=== PATIENT | female | born 1985 | race Caucasian/White ===

== ENCOUNTER 2016-10-29 21:35 | Emergency (ER) | payer OTHER ==
[~2016-10-29] VITALS: Ht 165.1 cm; Wt 68.5 kg
[~2016-10-29 21:35] MED LIST: DICL50TA3 PO; HYDR-3133 PO; LORA-392 PO; XANA2TAB PO
[2016-10-29 21:46] VITALS: BP 161/65; PULSE 82; RESP 18; TEMP 99.8; O2SAT 100
[2016-10-30] MEDS ORDERED: CLINDAMYCIN INJ 900 MG in SODIUM CHLORIDE 0.9% INJ 100 ML IV ONE (04:15)
[2016-10-30] MEDS ORDERED: KETOROLAC TROMETHAMINE 30 MG/ML (IVP) VIAL IV PUSH ONE (04:15)
[2016-10-30 05:08] LABS: POTASSIUM 3.7 MEQ/L (3.5-5.1)
[2016-10-30 05:11] LABS: BICARBONATE 26.4 MEQ/L (21.0-32.0)
[2016-10-30 05:15] LABS: AUTOMATED NEUTROPHIL # 2.9 TH/MM3 (1.8-7.7); BASOPHIL # 0.1 TH/MM3 (0-0.2); BASOPHIL % 1.8 % (0.0-2.0); EOSINOPHIL # 0.1 TH/MM3 (0-0.4); EOSINOPHIL % 1.8 % (0.0-4.0); HEMATOCRIT 33.4 % (35.0-46.0); HEMO FLAGS DIFF FINAL; LYMPH % 28.2 % (9.0-44.0); LYMPHOCYTE # 1.4 TH/MM3 (1.0-4.8); MEAN CELL VOLUME 89.4 FL (80.0-100.0); MEAN CORPUSCULAR HEMOGLOBIN 29.6 PG (27.0-34.0); MEAN CORPUSCULAR HGB CONC 33.1 % (32.0-36.0); MONO % 12.7 % (0.0-8.0); NEUT % 55.5 % (16.0-70.0); PLATELET COUNT 290 TH/MM3 (150-450); RED BLOOD COUNT 3.73 MIL/MM3 (4.00-5.30); WHITE BLOOD COUNT 5.1 TH/MM3 (4.0-11.0)
[2016-10-30] MEDS ORDERED: IOHEXOL 350 MG/ML 10 ML VIAL (for RAD DIAG) IVCONTRAST ONE (05:50)
--- NOTE | 2016-10-30 06:20 | RADRPT ---
EXAM DATE/TIME: 10/30/2016 15:50 [place] COMPARISON: No previous studies available for comparison. INDICATIONS : Right periorbital swelling. IV CONTRAST: 68 cc Omnipaque 350 (iohexol) IV RADIATION DOSE: 29.92 CTDIvol (mGy) MEDICAL HISTORY : None SURGICAL HISTORY : None. ENCOUNTER: Initial ACUITY: 2 days PAIN SCALE: 5/10 LOCATION: facial TECHNIQUE: Volumetric scanning of the facial bones was performed. Using automated exposure control and adjustme nt of the mA and/or kV according to patient size, radiation dose was kept as low as reasonably achiev able to obtain optimal diagnostic quality images. DICOM format image data is available electronicall y for review and comparison. FINDINGS: There is pre-septal soft tissue swelling in the right periorbital region with a suspected small cresc entic area of fluid in the subcutaneous tissues. No post septal inflammatory change identified. Both globes intact and no associated bony abnormalities. Sinuses are clear. CONCLUSION: 1. Pre-septal periorbital cellulitis with possible small crescentic-shaped area of subcutaneous fluid also present. Kb Dixon MD on October 30, 2016 at 6:16 Board Certified Radiologist. This report was verified electronically.
[2016-10-30 06:35] VITALS: BP 108/63; PULSE 71; RESP 16; TEMP 98.6; O2SAT 98
--- NOTE | 2016-10-30 09:48 | PD ---
HPI Chief Complaint: Skin Problem Time Seen by Provider: 04:12 Travel History International Travel<30 days: No Contact w/Intl Traveler<30days: No Traveled to known affect area: No History of Present Illness HPI 31 year-old female presents to the emergency department for complaint of swelling to the right eyelid and multiple pustular lesions over the upper extremities entry lesser extent the lower extremities. Patient reports that she has had fever at home up to 10 2F. Patient states she's now developed laryngitis. Patient states she's had myalgias and arthralgias. Patient states she was plucking her right eyebrow on evening and awakened on Saturday with swelling of the right eyelid. Patient states she had drainage from the right eyelid. Patient had left over antibiotic 8 doses and took this medication with some improvement of symptoms. Patient continues to have swelling of the right eyelid however does not think it is improving as well as the other sites. Patient is not diabetic. Patient is not on steroids for immunosuppressive therapy. Patient states that her last Tylenol was around 8 PM last evening. Patient denies . [facility] Past Medical History Narrative Medical Anxiety; nursing notes reviewed Anxiety: Yes Migraines: Yes Seizures: Yes (R/T COMING OFF RX MEDICATION) Tetanus Vaccination: Unknown Influenza Vaccination: No ?: Unknown LMP: 10/19/16 "SPOTTING" 09/26/16 "LAST FULL PERIOD" : 3 Para: 1 Miscarriage: 1 : 1 Past Surgical History Other Surgery: Yes (COSMETIC ) Social History Alcohol Use: Yes (RARELY) Tobacco Use: No Substance Use: No Allergies-Medications (Allergen,Severity, Reaction): Coded Allergies: No Known Allergies (Unverified , 10/30/16) Reported Meds & Prescriptions Reported Meds & Active Scripts Active No Active Prescriptions or Reported Medications Review of Systems Except as stated in HPI: all other systems reviewed are Neg Physical Exam Narrative GENERAL: Well-developed well-nourished female in no acute distress no respiratory distress; mild hoarseness no stridor SKIN: Warm and dry. Multiple subcentimeter pustules without vesicles no petechia no purpura to the upper extremities attention right eyelid with erythema and edema no. Orbital swelling or tenderness. HEAD: Normocephalic. EYES: No scleral icterus. No injection or drainage. ENT: Mucous membranes moist airway is patent tympanic membranes no redness no dullness or loss of landmarks. NECK: Supple, trachea midline. No JVD or lymphadenopathy. No nuchal rigidity no meningismus. CARDIOVASCULAR: Regular rate and rhythm without murmurs, gallops, or rubs. RESPIRATORY: Breath sounds equal bilaterally. No accessory muscle use. GASTROINTESTINAL: Abdomen soft, non-tender, nondistended. MUSCULOSKELETAL: No cyanosis, or edema. BACK: Nontender without obvious deformity. No CVA tenderness. Data Data Last Documented VS Vital Signs Date Time Temp Pulse Resp B/P (MAP) Pulse Ox O2 Delivery O2 Flow Rate FiO2 10/30/16 06:35 98.6 71 16 108/63 (78) 98 Room Air Orders Orders Basic Metabolic Panel (Bmp) (10/30/16 04:12) Complete Blood Count With Diff (10/30/16 04:12) Blood Culture (10/30/16 04:12) Iv Access Insert/Monitor (10/30/16 04:12) Clindamycin Inj (Cleocin Inj) (10/30/16 04:15) Ed Urine Pregnancytest Poc (10/30/16 04:12) Ketorolac Inj (Toradol Inj) (10/30/16 04:15) Ct Facial Bones W Iv Contrast (10/30/16 ) Iohexol 350 Inj (Omnipaque 350 Inj) (10/30/16 05:50) Labs Laboratory Tests Test 10/30/16 04:45 White Blood Count 5.1 TH/MM3 Red Blood Count 3.73 MIL/MM3 Hemoglobin 11.1 GM/DL Hematocrit 33.4 % Mean Corpuscular Volume 89.4 FL Mean Corpuscular Hemoglobin 29.6 PG Mean Corpuscular Hemoglobin Concent 33.1 % Red Cell Distribution Width 12.0 % Platelet Count 290 TH/MM3 Mean Platelet Volume 7.7 FL Neutrophils (%) (Auto) 55.5 % Lymphocytes (%) (Auto) 28.2 % Monocytes (%) (Auto) 12.7 % Eosinophils (%) (Auto) 1.8 % Basophils (%) (Auto) 1.8 % Neutrophils # (Auto) 2.9 TH/MM3 Lymphocytes # (Auto) 1.4 TH/MM3 Monocytes # (Auto) 0.6 TH/MM3 Eosinophils # (Auto) 0.1 TH/MM3 Basophils # (Auto) 0.1 TH/MM3 CBC Comment DIFF FINAL Differential Comment Blood Urea Nitrogen 5 MG/DL Creatinine 0.64 MG/DL Random Glucose 90 MG/DL Calcium Level 8.6 MG/DL Sodium Level 138 MEQ/L Potassium Level 3.7 MEQ/L Chloride Level 102 MEQ/L Carbon Dioxide Level 26.4 MEQ/L Anion Gap 10 MEQ/L Estimat Glomerular Filtration Rate 108 ML/MIN MDM Medical Decision Making Medical Screen Exam Complete: Yes Emergency Medical Condition: Yes Medical Record Reviewed: Yes Differential Diagnosis Preseptal cellulitis no findings for periorbital cellulitis upper eyelid abscess cellulitis impetiginous rash Narrative Course Specimens collected and sent for resulting patient given a dose of clindamycin and Toradol [address] facial bones performed and no evidence for abscess findings consistent with preseptal cellulitis care signed over to Dr Vallecillo Scripts No Active Prescriptions or Reported Meds Jessica Mandujano MD Oct 30, 2016 09:48
[2016-10-30] MEDS ORDERED: NORC5TAB PO (09:53)
[2016-10-30] MEDS ORDERED: HIBI4LIQ TOPICAL (09:53)
[2016-10-30] MEDS ORDERED: CLIN150 PO (09:53)
[2016-10-30] MEDS ORDERED: BACT800T5 PO (09:53)
--- NOTE | 2016-10-30 09:54 | PD ---
Physical Exam Date Seen by Provider: Oct 30, 2016 Time Seen by Provider: 09:49 Narrative The patient is a 31-year-old female who was initially evaluated by Dr. Mandujano. Please refer to the initial history, physical, diagnostic evaluation, and treatment modality plan. The patient was signed out with laboratory evaluation and CT pending. Data Data Last Documented VS Vital Signs Date Time Temp Pulse Resp B/P (MAP) Pulse Ox O2 Delivery O2 Flow Rate FiO2 10/30/16 06:35 98.6 71 16 108/63 (78) 98 Room Air Orders Orders Basic Metabolic Panel (Bmp) (10/30/16 04:12) Complete Blood Count With Diff (10/30/16 04:12) Blood Culture (10/30/16 04:12) Iv Access Insert/Monitor (10/30/16 04:12) Clindamycin Inj (Cleocin Inj) (10/30/16 04:15) Ed Urine Pregnancytest Poc (10/30/16 04:12) Ketorolac Inj (Toradol Inj) (10/30/16 04:15) Ct Facial Bones W Iv Contrast (10/30/16 ) Iohexol 350 Inj (Omnipaque 350 Inj) (10/30/16 05:50) Morphine Inj (Morphine Inj) (10/30/16 10:00) Ondansetron Inj (Zofran Inj) (10/30/16 10:00) Ns (Bolus) Inj (10/30/16 10:00) Labs Laboratory Tests Test 10/30/16 04:45 White Blood Count 5.1 TH/MM3 Red Blood Count 3.73 MIL/MM3 Hemoglobin 11.1 GM/DL Hematocrit 33.4 % Mean Corpuscular Volume 89.4 FL Mean Corpuscular Hemoglobin 29.6 PG Mean Corpuscular Hemoglobin Concent 33.1 % Red Cell Distribution Width 12.0 % Platelet Count 290 TH/MM3 Mean Platelet Volume 7.7 FL Neutrophils (%) (Auto) 55.5 % Lymphocytes (%) (Auto) 28.2 % Monocytes (%) (Auto) 12.7 % Eosinophils (%) (Auto) 1.8 % Basophils (%) (Auto) 1.8 % Neutrophils # (Auto) 2.9 TH/MM3 Lymphocytes # (Auto) 1.4 TH/MM3 Monocytes # (Auto) 0.6 TH/MM3 Eosinophils # (Auto) 0.1 TH/MM3 Basophils # (Auto) 0.1 TH/MM3 CBC Comment DIFF FINAL Differential Comment Blood Urea Nitrogen 5 MG/DL Creatinine 0.64 MG/DL Random Glucose 90 MG/DL Calcium Level 8.6 MG/DL Sodium Level 138 MEQ/L Potassium Level 3.7 MEQ/L Chloride Level 102 MEQ/L Carbon Dioxide Level 26.4 MEQ/L Anion Gap 10 MEQ/L Estimat Glomerular Filtration Rate 108 ML/MIN [facility] Medical Record Reviewed: Yes Supervised Visit with AVRIL: Yes Interpretation(s) Last Impressions Maxillofacial CT 10/30/16 0000 Signed Impressions: Service Date/Time: Sunday, October 30, 2016 15:50 - CONCLUSION: 1. Pre-septal periorbital cellulitis with possible small crescentic-shaped area of subcutaneous fluid also present. Kb Dixon MD Laboratory Tests Test 10/30/16 04:45 White Blood Count 5.1 TH/MM3 Red Blood Count 3.73 MIL/MM3 Hemoglobin 11.1 GM/DL Hematocrit 33.4 % Mean Corpuscular Volume 89.4 FL Mean Corpuscular Hemoglobin 29.6 PG Mean Corpuscular Hemoglobin Concent 33.1 % Red Cell Distribution Width 12.0 % Platelet Count 290 TH/MM3 Mean Platelet Volume 7.7 FL Neutrophils (%) (Auto) 55.5 % Lymphocytes (%) (Auto) 28.2 % Monocytes (%) (Auto) 12.7 % Eosinophils (%) (Auto) 1.8 % Basophils (%) (Auto) 1.8 % Neutrophils # (Auto) 2.9 TH/MM3 Lymphocytes # (Auto) 1.4 TH/MM3 Monocytes # (Auto) 0.6 TH/MM3 Eosinophils # (Auto) 0.1 TH/MM3 Basophils # (Auto) 0.1 TH/MM3 CBC Comment DIFF FINAL Differential Comment Blood Urea Nitrogen 5 MG/DL Creatinine 0.64 MG/DL Random Glucose 90 MG/DL Calcium Level 8.6 MG/DL Sodium Level 138 MEQ/L Potassium Level 3.7 MEQ/L Chloride Level 102 MEQ/L Carbon Dioxide Level 26.4 MEQ/L Anion Gap 10 MEQ/L Estimat Glomerular Filtration Rate 108 ML/MIN Differential Diagnosis Differential diagnosis includes preseptal cellulitis, post-septal cellulitis, abscess, infected wound, MRSA. Narrative Course The patient was initially evaluated by the previous physician. Please refer to the initial history, physical, diagnostic evaluation, and treatment modality plan. The patient was signed out with CT and laboratory evaluation pending. CT reveals preseptal cellulitis, questionable mesenteric fluid area, I evaluated the patient, she does have mild edema of the upper eyelid with a scab in place, but no fluctuance to indicate abscess. The patient received clindamycin and Toradol for pain, still had mild discomfort. 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 The patient was discharged home on clindamycin, Bactrim, and Hibiclens with pain medications. She is advised to follow-up with a primary physician. Return if symptoms worsen or progress. Diagnosis Primary Impression: Preseptal cellulitis of right upper eyelid Patient Instructions: General Instructions Additional Instruction: Medications as directed. Cool compresses to the right eye. Follow-up with her primary physician. Return if symptoms worsen or progress. Med/Other Pt SpecificInfo: Prescription(s) given Scripts Hydrocodone-Acetaminophen ([place]ass) 5-325 mg Tab 1 TAB PO Q6H Y for PAIN, #15 TAB 0 Refills Prov: Shaheed Vallecillo MD 10/30/16 Chlorhexidine Gluconate Topical (Hibiclens Topical) 4% Liq 1 APPLIC TOPICAL ONCE for Skin Cleanser, #118 ML 1 Refill Prov: Shaheed Vallecillo MD 10/30/16 Sulfamethoxazole-Trimethoprim (Bactrim DS) 800-160 Mg Tab 1 TAB PO BID for Infection, #20 TAB 0 Refills Prov: Shaheed Vallecillo MD 10/30/16 Clindamycin (Cleocin) 150 Mg Cap 150 MG PO Q6H for Infection for 10 Days, CAP 0 Refills Prov: Shaheed Vallecillo MD 10/30/16 Disposition: 01 DISCHARGE HOME Condition: Stable Shaheed Vallecillo MD Oct 30, 2016 09:54
[2016-10-30] MEDS ORDERED: MORPHINE SULFATE 4 MG/ML INJ IV PUSH ONE (10:00)
[2016-10-30] MEDS ORDERED: SODIUM CHLORID 0.9% 500 ML INJ 500 ML IV ONE (10:00)
[2016-10-30] MEDS ORDERED: ONDANSETRON HCL 4 MG/2 ML VIAL IV PUSH ONE (10:00)
[2016-10-30 10:10] VITALS: BP 100/59; PULSE 69; RESP 14; O2SAT 98
== END 2016-10-30 11:00 | disposition home or self-care (01) ==
LOC: PHED 21:35
DX: H00.031 Abscess of right upper eyelid (principal)
CPT/HCPCS: 70487; 80048; 84703; 85025; 87040; 96361; 96365; 96375; 99285; J1885; J2270; J2405; J7040; Q9967

== ENCOUNTER 2017-07-18 08:33 | Inpatient (IN) | payer SELFPAY ==
[~2017-07-18] VITALS: Ht 165.1 cm; Wt 64.0 kg
[~2017-07-18 08:33] MED LIST changes: +BACT800T5 PO; +CLIN150 PO; -DICL50TA3 PO; +HIBI4LIQ TOPICAL; -HYDR-3133 PO; -LORA-392 PO; +NORC5TAB PO; -XANA2TAB PO
[2017-07-18 08:39] VITALS: BP 116/59; TEMP 98.2; O2SAT 99
--- NOTE | 2017-07-18 09:29 | PD ---
HPI Chief Complaint: Syncope/Near-Syncope Time Seen by Provider: 09:03 Travel History International Travel<30 days: No Contact w/Intl Traveler<30days: No Traveled to known affect area: No History of Present Illness HPI The patient was seen and examined in the presence of the nurse. Patient complains of abdominal pain and diarrhea for 1 week. She had a syncopal episode today and struck her forehead on the ground. She woke up on the ground. Complains of headache. No neck pain. Symptoms are moderately severe. She also has left knee pain from the fall and a bruise there. Patient's fianc called paramedics when she fell. Patient has severe anxiety and panic problems. She is visibly panicky and in a position and shaking. Very challenging to evaluate. No alleviating factors. Symptoms exacerbated by her anxiety. She does have history of benzodiazepine withdrawal seizure in the past but has not been on benzodiazepines per years per her report. She is a heavy alcohol drinker. Denies drug use PFSH Past Medical History Anxiety: Yes Migraines: Yes Seizures: Yes (R/T COMING OFF RX MEDICATION) Tetanus Vaccination: Unknown Influenza Vaccination: No ?: Unknown LMP: 01/2017 : 3 Para: 1 Miscarriage: 1 : 1 Past Surgical History Oral Surgery: Yes (wisdom teeth) Other Surgery: Yes (COSMETIC ) Social History Alcohol Use: Yes (daily "couple shots and beer") Tobacco Use: No Substance Use: No Allergies-Medications (Allergen,Severity, Reaction): Coded Allergies: No Known Allergies (Unverified Adverse Reaction, Unknown, 07/18/17) Reported Meds & Prescriptions Reported Meds & Active Scripts Active No Active Prescriptions or Reported Medications Review of Systems General / Constitutional: No: Fever Eyes: No: Visual changes HENT: Positive: Headaches Cardiovascular: Positive: Syncope, No: Chest Pain or Discomfort Respiratory: No: Shortness of Breath Gastrointestinal: No: Abdominal Pain Genitourinary: No: Dysuria Musculoskeletal: Positive: Weakness, Pain Skin: No Rash Neurologic: Positive: Weakness, Headache Psychiatric: Positive: Anxiety, Substance Abuse, No: Depression Endocrine: No: Polydipsia Hematologic/Lymphatic: No: Easy Bruising Physical Exam Narrative GENERAL: Well-nourished, well-developed patient with severe anxiety. SKIN: Focused skin assessment reveals no rash and nodules. Skin is Warm and dry. HEAD: Has an abrasion to the mid mid forehead with tenderness. Normocephalic. There is an abrasion to her chin without any tenderness. EYES: Pupils equal and round. No scleral icterus. No injection or drainage. ENT: No nasal bleeding or discharge. Mucous membranes pink and moist. No tongue injury. No loose dentition. NECK: Trachea midline. No JVD. No midline tenderness. No bruising or swelling of the neck. CARDIOVASCULAR: Regular rate and rhythm. No murmur appreciated. RESPIRATORY: No accessory muscle use. Clear to auscultation. Breath sounds equal bilaterally. GASTROINTESTINAL: Abdomen soft, periumbilical tenderness without rebound or guarding, nondistended. Hepatic and splenic margins not palpable. MUSCULOSKELETAL: No obvious deformities. No clubbing. No cyanosis. No edema. Has some bruising and tenderness to the left patella NEUROLOGICAL: Awake and alert. No obvious cranial nerve deficits. Motor grossly within normal limits. Normal speech. PSYCHIATRIC: Very anxious mood and affect; insight and judgment poor . Data Data Last Documented VS Vital Signs Date Time Temp Pulse Resp B/P (MAP) Pulse Ox O2 Delivery O2 Flow Rate FiO2 07/18/17 08:39 98.2 93 18 116/59 (78) 99 Orders Orders Electrocardiogram (07/18/17 08:52) Complete Blood Count With Diff (07/18/17 08:52) Comprehensive Metabolic Panel (07/18/17 08:52) Iv Access Insert/Monitor (07/18/17 08:52) Sodium Chlor 0.9% 1000 Ml Inj (Ns 1000 M (07/18/17 09:30) Alcohol (Ethanol) (07/18/17 09:19) Ct Brain W/O Iv Contrast(Rout) (07/18/17 ) Drug Screen, Random Urine (07/18/17 09:19) Ed Urine Pregnancytest Poc (07/18/17 09:19) Ct Abd/Pel W Iv Contrast(Rout) (07/18/17 ) Knee, Complete (4vws) (07/18/17 ) Lorazepam Inj (Ativan Inj) (07/18/17 09:30) Iohexol 350 Inj (Omnipaque 350 Inj) (07/18/17 10:17) Admit To Inpatient (07/18/17 ) Vital Signs (Adult) Q4H (07/18/17 13:03) Activity Bed Rest With Brp (07/18/17 13:03) Bedside Glucose MAYO.CSUGAR (07/18/17 13:03) Intake + Output MAYO.QSHIFT (07/18/17 13:03) Neuro Checks Q4H (07/18/17 13:03) Alcohol Withdrawal Asmt-Ciwa Q4HX18 (07/18/17 13:03) ^ Seizure Precautions (07/18/17 13:03) Woodyard Operator / Telemetry MAYO.Q8H (07/18/17 13:03) Diet Heart Healthy (07/18/17 Lunch) Sodium Chloride 0.9% Flush (Ns Flush) (07/18/17 13:15) Sodium Chloride 0.9% Flush (Ns Flush) (07/18/17 21:00) Sodium Chlor 0.9% 1000 Ml Inj (Ns 1000 M (07/18/17 13:03) Folic Acid (Folate) (07/19/17 09:00) Thiamine (Vit B1) (Vitamin B1) (07/19/17 09:00) Multivitamins-Minerals Therap (Theragran (07/19/17 09:00) Famotidine (Pepcid) (07/18/17 21:00) Clonidine (Catapres) (07/18/17 13:15) Comprehensive Metabolic Panel (07/19/17 06:00) Lipase (07/18/17 13:03) Magnesium (Mg) (07/18/17 13:03) Phosphorus (Po4) (07/18/17 13:03) Eeg Study (07/18/17 ) Consult Cm-Etoh Abuse Dc Plan (07/18/17 ) Flumazenil Inj (Romazicon Inj) (07/18/17 13:15) Lorazepam (Ativan) (07/18/17 13:15) Lorazepam Inj (Ativan Inj) (07/18/17 13:15) Lorazepam (Ativan) (07/18/17 13:15) Lorazepam Inj (Ativan Inj) (07/18/17 13:15) Lorazepam Inj (Ativan Inj) (07/18/17 13:15) Lorazepam Inj (Ativan Inj) (07/18/17 13:15) Enoxaparin Inj (Lovenox Inj) (07/18/17 13:15) Scd Bilateral/Knee High MAYO.BID (07/18/17 13:03) Manolo Bilateral/Knee High MAYO.QSHIFT (07/18/17 13:03) Inpatient Certification (07/18/17 ) Labs Laboratory Tests Test 07/18/17 09:18 07/18/17 10:30 White Blood Count 7.1 TH/MM3 Red Blood Count 4.19 MIL/MM3 Hemoglobin 12.6 GM/DL Hematocrit 37.0 % Mean Corpuscular Volume 88.2 FL Mean Corpuscular Hemoglobin 30.0 PG Mean Corpuscular Hemoglobin Concent 34.0 % Red Cell Distribution Width 14.0 % Platelet Count 257 TH/MM3 Mean Platelet Volume 7.1 FL Neutrophils (%) (Auto) 72.9 % Lymphocytes (%) (Auto) 16.8 % Monocytes (%) (Auto) 9.9 % Eosinophils (%) (Auto) 0.1 % Basophils (%) (Auto) 0.3 % Neutrophils # (Auto) 5.2 TH/MM3 Lymphocytes # (Auto) 1.2 TH/MM3 Monocytes # (Auto) 0.7 TH/MM3 Eosinophils # (Auto) 0.0 TH/MM3 Basophils # (Auto) 0.0 TH/MM3 CBC Comment DIFF FINAL Differential Comment Blood Urea Nitrogen 9 MG/DL Creatinine 0.77 MG/DL Random Glucose 110 MG/DL Total Protein 7.8 GM/DL Albumin 3.6 GM/DL Calcium Level 9.1 MG/DL Alkaline Phosphatase 74 U/L Aspartate Amino Transf (AST/SGOT) 76 U/L Alanine Aminotransferase (ALT/SGPT) 70 U/L Total Bilirubin 0.5 MG/DL Sodium Level 138 MEQ/L Potassium Level 5.0 MEQ/L Chloride Level 103 MEQ/L Carbon Dioxide Level 23.5 MEQ/L Anion Gap 12 MEQ/L Estimat Glomerular Filtration Rate 87 ML/MIN Ethyl Alcohol Level 19 MG/DL Urine Opiates Screen NEG Urine Barbiturates Screen NEG Urine Amphetamines Screen NEG Urine Benzodiazepines Screen NEG Urine Cocaine Screen NEG Urine Cannabinoids Screen NEG [facility] Medical Decision Making Medical Screen Exam Complete: Yes Emergency Medical Condition: Yes Medical Record Reviewed: Yes Differential Diagnosis Intracranial hemorrhage, concussion, alcohol withdrawal seizure, panic attack Narrative Course I have reviewed the patient's electronic medical record. Patient's very challenging to evaluate. She is shaking and panicky and in position. Not particularly cooperative. IV placed and labs sent I ordered x-ray and CT imaging I am giving her 1 mg IV Ativan Labs are reviewed. Has minor elevation of LFTs but general blood counts and basic metabolic studies normal Alcohol level is 19 and tox screen negative Patient describes multiple episodes where she passed out and fell and woke up on the ground. She is injured herself multiple times with knee contusion and head injury during these falls. My suspicion is alcohol withdrawal seizure, multiple. She was a 6 or 8 day drinker and 2 days ago she quit per her report. Despite IV Ativan she is tachycardic and jittery still. I reviewed with the hospitalist who will admit Diagnosis Primary Impression: Alcohol withdrawal seizure with complication Additional Impressions: Head injury Qualified Codes: S09.90XA - Unspecified injury of head, initial encounter Contusion of left knee, initial encounter Admitting Information Admitting Physician Requests: Admit Scripts No Active Prescriptions or Reported Meds Dante Frazier MD July 18, 2017 09:29
[2017-07-18] MEDS ORDERED: SODIUM CHLOR 0.9% 1000 ML INJ 1,000 ML IV ONE (09:30)
[2017-07-18] MEDS ORDERED: LORazepam 2 MG/ML VIAL IV PUSH ONE (09:30)
[2017-07-18 09:35] LABS: AUTOMATED NEUTROPHIL # 5.2 TH/MM3 (1.8-7.7); BASOPHIL % 0.3 % (0.0-2.0); EOSINOPHIL % 0.1 % (0.0-4.0); HEMOGLOBIN 12.6 GM/DL (11.6-15.3); LYMPH % 16.8 % (9.0-44.0); LYMPHOCYTE # 1.2 TH/MM3 (1.0-4.8); MEAN CELL VOLUME 88.2 FL (80.0-100.0); MEAN PLATELET VOLUME 7.1 FL (7.0-11.0); MONO % 9.9 % (0.0-8.0); MONOCYTE # 0.7 TH/MM3 (0-0.9); NEUT % 72.9 % (16.0-70.0); PLATELET COUNT 257 TH/MM3 (150-450); RED BLOOD COUNT 4.19 MIL/MM3 (4.00-5.30); WHITE BLOOD COUNT 7.1 TH/MM3 (4.0-11.0)
[2017-07-18 09:56] LABS: ALT (GPT) 70 U/L (10-53)
[2017-07-18 09:58] LABS: ALKALINE PHOSPHATASE 74 U/L (45-117); TOTAL BILIRUBIN ADULT 0.5 MG/DL (0.2-1.0); TOTAL PROTEIN 7.8 GM/DL (6.4-8.2)
--- NOTE | 2017-07-18 09:58 | RADRPT ---
EXAM DATE: 07/18/2017 9:56 AM EDT AGE/SEX: 32 years / Female INDICATIONS: Anterior left knee pain. Patient fell last night. CLINICAL DATA: This is the patient's initial encounter. Patient reports that signs and symptoms have been present for 2 days and indicates a pain score of 8/10. MEDICAL/SURGICAL HISTORY: None. None. COMPARISON: No prior [facility] exams available for comparison. FINDINGS: Bony structures are intact and in normal alignment. Joints are intact without dislocation or signifi cant arthropathy. Osseous density is normal. Soft tissues are unremarkable. No radiopaque foreign bodies seen. CONCLUSION: 1. No acute fracture or dislocation. Electronically signed by: Aly Rodrigues MD 07/18/2017 9:57 AM EDT
[2017-07-18 09:59] LABS: ALBUMIN 3.6 GM/DL (3.4-5.0); AST (GOT) 76 U/L (15-37); BICARBONATE 23.5 MEQ/L (21.0-32.0); BLOOD UREA NITROGEN 9 MG/DL (7-18); CALCIUM 9.1 MG/DL (8.5-10.1); CHLORIDE 103 MEQ/L (98-107); CREATININE 0.77 MG/DL (0.50-1.00); GLOMERULAR FILTRATION RATE 87 ML/MIN (>89); GLUCOSE,RANDOM 110 MG/DL (74-106); SODIUM (NA) 138 MEQ/L (136-145)
--- NOTE | 2017-07-18 10:16 | RADRPT ---
EXAM DATE: 07/18/2017 10:12 AM EDT AGE/SEX: 32 years / Female INDICATIONS: Cephalgia after fall. CLINICAL DATA: This is the patient's initial encounter. Patient reports that signs and symptoms have been present for 1 day and indicates a pain score of 8/10. MEDICAL/SURGICAL HISTORY: . Seizures None. RADIATION DOSE: 49.20 CTDI (mGy) COMPARISON: [facility] [place], [place] BRAIN W/O CONTRAST, 03/03/2015. . TECHNIQUE: CT of the head without contrast. Using automated exposure control and adjustment of the mA and/or kV according to patient size, radiation dose was kept as low as reasonably achievable to ob tain optimal diagnostic quality images. FINDINGS: Cerebrum: The ventricles are normal for age. No evidence of midline shift, mass lesion, hemorrhage or acute infarction. No extraaxial fluid collections are seen. Posterior Fossa: The cerebellum and brainstem are intact. The 4th ventricle is midline. The cerebe llopontine angle is unremarkable. Extracranial: The visualized portion of the orbits is intact. Skull: The calvaria is intact. No evidence of skull fracture. CONCLUSION: 1. Negative trauma CT Electronically signed by: Farrukh Luevano MD 07/18/2017 10:14 AM EDT
[2017-07-18] MEDS ORDERED: IOHEXOL 350 MG/ML 10 ML VIAL (for RAD DIAG) IVCONTRAST ONE (10:17)
--- NOTE | 2017-07-18 10:41 | RADRPT ---
EXAM DATE: 07/18/2017 10:18 AM EDT AGE/SEX: 32 years / Female INDICATIONS: Pain all over after fall, also complaining of diarrhea and fevers for 2 days CLINICAL DATA: This is the patient's initial encounter. Patient reports that signs and symptoms have been present for 2 days and indicates a pain score of 8/10. MEDICAL/SURGICAL HISTORY: . Seizures None. ORAL CONTRAST: No oral contrast ingested. RADIATION DOSE: 5.62 CTDI (mGy) COMPARISON: No prior [place] exams available for comparison. TECHNIQUE: Multiple contiguous axial images were obtained through the abdomen and pelvis following b olus infusion of 96 ml Omnipaque 350 (iohexol) nonionic water-soluble contrast as a single exam dos e. No oral contrast ingested. Using automated exposure control and adjustment of the mA and/or kV ac cording to patient size, the radiation dose was kept as low as reasonably achievable to obtain optima l diagnostic quality images. FINDINGS: Lower Lungs: The visualized lower lungs are clear. Liver: The liver has a homogeneous density without space-occupying lesion. There is no dilation of th e biliary tree. There is mild hepatic steatosis. The gallbladder is contracted. Spleen: Homogeneous density without enlargement. Pancreas: Unremarkable without mass or calcification. Kidneys: Normal in size and shape. No evidence of mass or hydronephrosis. Adrenal Glands: Unremarkable. Aorta: The aorta and proximal iliac vessels are grossly unremarkable without aneurysmal dilation. Bowel/Mesentery: No oral contrast was given limiting the sensitivity of the exam. The bowel loops ar e grossly unremarkable. The cecum and sigmoid colon have a normal configuration. Abdominal Wall: Intact. Retroperitoneum: No evidence of adenopathy in the retrocrural, para-aortic, or deep pelvic regions. Bladder: Contours are smooth. Reproductive Organs: No abnormal masses or calcifications seen. Inguinal: The inguinal region is unremarkable without evidence of adenopathy. Bony Structures: Unremarkable. CONCLUSION: 1. Negative trauma study. 2. Nonobstructive bowel gas pattern performed without oral contrast demonstrating no gross abnormali ty. 3. Mild hepatic steatosis. 4. Contracted gallbladder with no evidence of cholelithiasis. Electronically signed by: Farrukh Luevano MD 07/18/2017 10:39 AM EDT
[2017-07-18] MEDS ORDERED: cloNIDine HCL 0.1 MG TAB PO PRN (13:15)
[2017-07-18] MEDS ORDERED: LORazepam 2 MG/ML VIAL IV PUSH PRN ×2 (13:15)
[2017-07-18] MEDS ORDERED: LORazepam 2 MG TAB PO PRN (13:15)
[2017-07-18] MEDS ORDERED: SODIUM CHLORIDE 0.9% FLUSH 10 ML FLUSH IV FLUSH PRN (13:15)
[2017-07-18] MEDS ORDERED: FLUMAZENIL 0.5 MG/5 ML VIAL IV PUSH PRN (13:15)
--- NOTE | 2017-07-18 14:41 | EKG ---
Date Performed: 07/18/2017 Time Performed: 08:57:36 PTAGE: 32 years EKG: Sinus rhythm WITH SINUS ARRHYTHMIA NORMAL ECG Since the PREVIOUS TRACING , no significant change noted PREVIOUS TRACIN07/21/2015 13.51 DOCTOR: Josh Chavez Interpretating Date/Time 07/18/2017 14:40:33
[2017-07-18] MEDS: SODIUM CHLOR 0.9% 1000 ML INJ 1,000 ML IV SCH ×2 (15:07→22:39)
[2017-07-18 15:08] VITALS: BP 154/70; PULSE 98; RESP 21; O2SAT 97
[2017-07-18 16:00] VITALS: BP 119/71; PULSE 105; RESP 20; TEMP 98; O2SAT 98
[2017-07-18] MEDS: ENOXAPARIN SODIUM 40 MG/0.4 ML SYRINGE SQ SCH (16:09)
[2017-07-18] MEDS: LORazepam 1 MG TAB PO PRN (16:09)
--- NOTE | 2017-07-18 16:09 | HHI.HP ---
[facility] Primary Care Physician No Primary Care Physician Admission Diagnosis mult alcohol withdrawal seizures,head injury,L knee contusion Diagnoses: Chief Complaint: seizures Travel History International Travel<30 Days: No Contact w/Intl Traveler <30 Da: No Traveled to Known Affected Are: No History of Present Illness patient is a 32 yo F with h/o alcohol use, who came to the ED with complains of abdominal pain and diarrhea for 1 week. She had a syncopal episode today and struck her forehead on the ground. She woke up on the ground. Complains of headache. No neck pain. Symptoms are moderately severe. She also has left knee pain from the fall and a bruise there. Patient's fianc called paramedics when she fell. Patient has severe anxiety and panic problems. She is visibly panicky and in a position and shaking. Very challenging to evaluate. No alleviating factors. Symptoms exacerbated by her anxiety. She does have history of benzodiazepine withdrawal seizure in the past but has not been on benzodiazepines per years per her report. She is a heavy alcohol drinker. Denies drug use. Review of Systems ROS Limitations: Clinical Condition Except as stated in HPI: all other systems reviewed are Neg Past Family Social History Past Medical History Anxiety: Yes Migraines: Yes Seizures: Yes (R/T COMING OFF RX MEDICATION) Tetanus Vaccination: Unknown Influenza Vaccination: No ?: Unknown LMP: 01/2017 : 3 Para: 1 Miscarriage: 1 : 1 Past Surgical History Oral Surgery: Yes (wisdom teeth) Other Surgery: Yes (COSMETIC ) Reported Medications Last Impressions Knee X-Ray 07/18/17 0000 Signed Impressions: CONCLUSION: 1. No acute fracture or dislocation. Head CT 07/18/17 0000 Signed Impressions: CONCLUSION: 1. Negative trauma CT Abdomen/Pelvis CT 07/18/17 0000 Signed Impressions: CONCLUSION: 1. Negative trauma study. 2. Nonobstructive bowel gas pattern performed without oral contrast demonstrat ing no gross abnormality. 3. Mild hepatic steatosis. 4. Contracted gallbladder with no evidence of cholelithiasis. Allergies: Coded Allergies: No Known Allergies (Unverified Allergy, Unknown, 5/31/18) Family History healthy Social History Alcohol Use: Yes (daily "couple shots and beer") Tobacco Use: No Substance Use: No Physical Exam Vital Signs Vital Signs Date Time Temp Pulse Resp B/P (MAP) Pulse Ox O2 Delivery O2 Flow Rate FiO2 07/18/17 15:08 98 21 154/70 (98) 97 Room Air 07/18/17 08:39 98.2 93 18 116/59 (78) 99 Physical Exam GENERAL: This is a well-nourished, well-developed patient, pressured speech. SKIN: multiple healing wounds legs, left breast. Redness on knee form fall. HEAD: Atraumatic. Normocephalic. No temporal or scalp tenderness. EYES: Pupils equal round and reactive. Extraocular motions intact. No scleral icterus. No injection or drainage. ENT: Nose without bleeding, purulent drainage or septal hematoma. Throat without erythema, tonsillar hypertrophy or exudate. Uvula midline. Airway patent. NECK: Trachea midline. No JVD or lymphadenopathy. Supple, nontender, no meningeal signs. CARDIOVASCULAR: Regular rate and rhythm without murmurs, gallops, or rubs. RESPIRATORY: Clear to auscultation. Breath sounds equal bilaterally. No wheezes , rales, or rhonchi. GASTROINTESTINAL: Abdomen soft, non-tender, nondistended. No hepato-splenomegaly , or palpable masses. No guarding. MUSCULOSKELETAL: Extremities without clubbing, cyanosis, or edema. No joint tenderness, effusion, or edema noted. No calf tenderness. Negative Homans sign bilaterally. NEUROLOGICAL: Awake and alert. Cranial nerves II through XII intact. Motor and sensory grossly within normal limits. Five out of 5 muscle strength in all muscle groups. Normal speech. Laboratory Laboratory Tests Test 07/18/17 09:18 07/18/17 10:30 07/18/17 15:22 White Blood Count 7.1 Red Blood Count 4.19 Hemoglobin 12.6 Hematocrit 37.0 Mean Corpuscular Volume 88.2 Mean Corpuscular Hemoglobin 30.0 Mean Corpuscular Hemoglobin Concent 34.0 Red Cell Distribution Width 14.0 Platelet Count 257 Mean Platelet Volume 7.1 Neutrophils (%) (Auto) 72.9 Lymphocytes (%) (Auto) 16.8 Monocytes (%) (Auto) 9.9 Eosinophils (%) (Auto) 0.1 Basophils (%) (Auto) 0.3 Neutrophils # (Auto) 5.2 Lymphocytes # (Auto) 1.2 Monocytes # (Auto) 0.7 Eosinophils # (Auto) 0.0 Basophils # (Auto) 0.0 CBC Comment DIFF FINAL Differential Comment Blood Urea Nitrogen 9 Creatinine 0.77 Random Glucose 110 Total Protein 7.8 Albumin 3.6 Calcium Level 9.1 Alkaline Phosphatase 74 Aspartate Amino Transf (AST/SGOT) 76 Alanine Aminotransferase (ALT/SGPT) 70 Total Bilirubin 0.5 Sodium Level 138 Potassium Level 5.0 Chloride Level 103 Carbon Dioxide Level 23.5 Anion Gap 12 Estimat Glomerular Filtration Rate 87 Ethyl Alcohol Level 19 Urine Opiates Screen NEG Urine Barbiturates Screen NEG Urine Amphetamines Screen NEG Urine Benzodiazepines Screen NEG Urine Cocaine Screen NEG Urine Cannabinoids Screen NEG Result Diagram: 07/18/1718 07/18/1718 Imaging Last Impressions Knee X-Ray 07/18/17 0000 Signed Impressions: CONCLUSION: 1. No acute fracture or dislocation. Head CT 07/18/17 0000 Signed Impressions: CONCLUSION: 1. Negative trauma CT Abdomen/Pelvis CT 07/18/17 0000 Signed Impressions: CONCLUSION: 1. Negative trauma study. 2. Nonobstructive bowel gas pattern performed without oral contrast demonstrat ing no gross abnormality. 3. Mild hepatic steatosis. 4. Contracted gallbladder with no evidence of cholelithiasis. Caprini VTE Risk Assessment Caprini VTE Risk Assessment: Mod/High Risk (score >= 2) Caprini Risk Assessment Model Point Value = 1 Point Value = 2 Point Value = 3 Point Value = 5 Age 41-60 Minor surgery BMI > 25 kg/m2 Swollen legs Varicose veins or History of unexplained or recurrent spontaneous Oral contraceptives or hormone replacement Sepsis (< 1 month) Serious lung disease, including pneumonia (< 1 month) Abnormal pulmonary function Acute myocardial infarction Congestive heart failure (< 1 month) History of inflammatory bowel disease Medical patient at bed rest Age 61-74 Arthroscopic surgery Major open surgery (> 45 min) Laparoscopic surgery (> 45 min) Malignancy Confined to bed (> 72 hours) Immobilizing plaster cast Central venous access Age >= 75 History of VTE Family history of VTE Factor V Leiden Prothrombin [id number] Lupus anticoagulant Anticardiolipin antibodies Elevated serum homocysteine Heparin-induced thrombocytopenia Other congenital or acquired thrombophilia Stroke (< 1 month) Elective arthroplasty Hip, pelvis, or leg fracture Acute spinal cord injury (< 1 month) Prophylaxis Regimen Total Risk Factor Score Risk Level Prophylaxis Regimen 0-1 Low Early ambulation 2 Moderate Order ONE of the following: *Sequential Compression Device (SCD) *Heparin 5000 units SQ BID 3-4 Higher Order ONE of the following medications: *Heparin 5000 units SQ TID *Enoxaparin/Lovenox 40 mg SQ daily (WT < 150 kg, CrCl > 30 mL/min) *Enoxaparin/Lovenox 30 mg SQ daily (WT < 150 kg, CrCl > 10-29 mL/min) *Enoxaparin/Lovenox 30 mg SQ BID (WT < 150 kg, CrCl > 30 mL/min) AND/OR *Sequential Compression Device (SCD) 5 or more Highest Order ONE of the following medications: *Heparin 5000 units SQ TID (Preferred with Epidurals) *Enoxaparin/Lovenox 40 mg SQ daily (WT < 150 kg, CrCl > 30 mL/min) *Enoxaparin/Lovenox 30 mg SQ daily (WT < 150 kg, CrCl > 10-29 mL/min) *Enoxaparin/Lovenox 30 mg SQ BID (WT < 150 kg, CrCl > 30 mL/min) AND *Sequential Compression Device (SCD) Assessment and Plan Assessment and Plan Alcohol withdrawal seizure with complication Head injury Contusion of left knee, initial encounter h/o anxiety PTSD Consult psych Alcohol level is 19 and tox screen negative on admission Chest x-ray and CT imaging reviewed no acute findings Placed on CIWA protocol Seizure precautions Neuro checks Check EEG. DVT ppx scd/teds/lovenox Discussed Condition With pt, nurse Physician Certification 2 Midnight Certification Type: Admission for Inpatient Services Order for Inpatient Services The services are ordered in accordance with Medicare regulations or non- Medicare payer requirements, as applicable. In the case of services not specified as inpatient-only, they are appropriately provided as inpatient services in accordance with the 2-midnight benchmark. Estimated LOS (days): 3 days is the estimated time the patient will need to remain in the hospital, assuming treatment plan goals are met and no additional complications. Post-Hospital Plan: Home Sirisha Da Silva MD July 18, 2017 16:09
[2017-07-18 16:11] LABS: MAGNESIUM 1.9 MG/DL (1.5-2.5); PHOSPHORUS 3.5 MG/DL (2.5-4.9)
[2017-07-18] MEDS ORDERED: ACETAMINOPHEN/HYDROcodone 325 MG/5 MG TAB PO PRN (16:30)
[2017-07-18] MEDS: LORazepam 2 MG/ML VIAL IV PUSH PRN ×2 (19:36→23:50)
--- NOTE | 2017-07-18 20:26 | MG ---
cc: Abbie Davies MD, Dalia MD EEG NUMBER [id number]. REFERRING PHYSICIAN: Dr. Da Silva. Photic stimulation only. Awake, drowsy, asleep study. EPLH Level 19. CT negative. Admitted with abdominal pain, diarrhea for the last week. Possible benzodiazepine withdrawal. She was given 1 mg of Ativan at 10:20 today in the morning. To go DESCRIPTION OF RECORD: There is some faster frequency waves consistent with what looks like a beta wave frequency, 20 microvolts, but not continuous. There is a lot of eye movement. The technicians that performed the study did put a wash cloth over the patient's eyes to try to decrease the movements; however, it did not work. She is talking throughout the study as well. EKG does look sinus. Hyperventilation was not done, as she complained of a headache and nausea. Photic stimulation did elicit a posterior driving response. IMPRESSION: Overall, benign electroencephalogram. Some faster frequency waves such as beta were noted, which certainly could have been secondary to benzodiazepine effect such as Ativan. However, no epileptiform features were seen. MD JADA Rodríguez/ , 08:01 PM , 08:25 PM
[2017-07-18 20:35] VITALS: BP 116/59; PULSE 89; RESP 18; TEMP 98; O2SAT 96
[2017-07-18] MEDS: oxyCODONE/ACETAMINOPHEN 5 MG/325 MG TAB PO PRN (22:31)
[2017-07-18] MEDS: FAMOTIDINE 20 MG TAB PO SCH (22:31)
[2017-07-18] MEDS: SODIUM CHLORIDE 0.9% FLUSH 10 ML FLUSH IV FLUSH SCH (22:32)
[2017-07-19] VITALS (8 sets, daily range): BP systolic 110–152; BP diastolic 59–82; PULSE 60–122; RESP 17–22; TEMP 97.7–98.1; O2SAT 96–100
[2017-07-19] MEDS: oxyCODONE/ACETAMINOPHEN 5 MG/325 MG TAB PO PRN ×5 (04:14→21:17)
[2017-07-19] MEDS: LORazepam 2 MG/ML VIAL IV PUSH PRN ×4 (05:23→21:14)
[2017-07-19 07:50] LABS: ALBUMIN 3.5 GM/DL (3.4-5.0); ALKALINE PHOSPHATASE 72 U/L (45-117); ALT (GPT) 59 U/L (10-53); AST (GOT) 47 U/L (15-37); BICARBONATE 26.9 MEQ/L (21.0-32.0); BLOOD UREA NITROGEN 12 MG/DL (7-18); CALCIUM 8.6 MG/DL (8.5-10.1); CHLORIDE 100 MEQ/L (98-107); CREATININE 0.72 MG/DL (0.50-1.00); GLOMERULAR FILTRATION RATE 94 ML/MIN (>89); GLUCOSE,RANDOM 91 MG/DL (74-106); SODIUM (NA) 136 MEQ/L (136-145); TOTAL PROTEIN 7.6 GM/DL (6.4-8.2)
[2017-07-19] MEDS: THIAMINE HCL 100 MG TAB PO SCH (08:04)
[2017-07-19] MEDS: MULTIVITAMINS/MINERALS THERAPEUTIC TAB PO SCH (08:04)
[2017-07-19] MEDS: FOLIC ACID 1 MG TAB PO SCH (08:04)
[2017-07-19] MEDS: FAMOTIDINE 20 MG TAB PO SCH ×2 (08:04→21:16)
[2017-07-19] MEDS: SODIUM CHLORIDE 0.9% FLUSH 10 ML FLUSH IV FLUSH SCH ×2 (08:06→21:18)
[2017-07-19] MEDS: SODIUM CHLOR 0.9% 1000 ML INJ 1,000 ML IV SCH ×2 (08:11→17:42)
--- NOTE | 2017-07-19 08:41 | HHI.PR ---
Subjective Remarks Patient is demanding for IV Dilaudid since she has pain also says she is very anxious she is taking [place]. Her vital signs however are stable, blood pressure is normal and into the lower side as well and heart rate is also normal. No fever or chills overnight. No seizures Tremors on and off Objective Vitals Vital Signs Date Time Temp Pulse Resp B/P (MAP) Pulse Ox O2 Delivery O2 Flow Rate FiO2 07/19/17 08:00 97.8 78 18 116/78 (91) 97 07/19/17 04:50 97.9 60 17 110/68 (82) 97 07/19/17 00:17 97.9 76 18 118/67 (84) 96 07/18/17 20:35 98.0 89 18 116/59 (78) 96 07/18/17 16:33 07/18/17 16:00 98.0 105 20 119/71 (87) 98 07/18/17 15:08 98 21 154/70 (98) 97 Room Air I/O 07/18/17 07/18/17 07/18/17 07/19/17 07/19/17 07/19/17 07:00 15:00 23:00 07:00 15:00 23:00 Intake Total 1000 ml 1720 ml 760 ml Balance 1000 ml 1720 ml 760 ml Intake Oral 720 ml 760 ml IV Total 1000 ml 1000 ml # Voids 1 4 # Bowel Movements 0 Result Diagram: 07/18/17 0918 07/19/17 0640 Imaging Last Impressions Knee X-Ray 07/18/17 0000 Signed Impressions: CONCLUSION: 1. No acute fracture or dislocation. Head CT 07/18/17 0000 Signed Impressions: CONCLUSION: 1. Negative trauma CT Abdomen/Pelvis CT 07/18/17 0000 Signed Impressions: CONCLUSION: 1. Negative trauma study. 2. Nonobstructive bowel gas pattern performed without oral contrast demonstrat ing no gross abnormality. 3. Mild hepatic steatosis. 4. Contracted gallbladder with no evidence of cholelithiasis. Objective Remarks GENERAL: This is a well-nourished, well-developed patient, pressured speech. CARDIOVASCULAR: Regular rate and rhythm without murmurs, gallops, or rubs. RESPIRATORY: Clear to auscultation. Breath sounds equal bilaterally. No wheezes , rales, or rhonchi. GASTROINTESTINAL: Abdomen soft, non-tender, nondistended. No hepato-splenomegaly , or palpable masses. No guarding. MUSCULOSKELETAL: Extremities without clubbing, cyanosis, or edema. No joint tenderness, effusion, or edema noted. No calf tenderness. Negative Homans sign bilaterally. NEUROLOGICAL: Awake and alert. Cranial nerves II through XII intact. Motor and sensory grossly within normal limits. Five out of 5 muscle strength in all muscle groups. Normal speech. A/P Assessment and Plan Alcohol withdrawal seizure with complication Head injury Contusion of left knee, initial encounter H/o anxiety PTSD Consult psych Alcohol level is 19 and tox screen negative on admission Chest x-ray and CT imaging reviewed no acute findings Placed on CIWA protocol Seizure precautions Neuro checks Check EEG. Drug-seeking behavior. DVT ppx scd/teds/lovenox Discussed Condition With pt, nurse Sirisha Da Silva MD Jul 19, 2017 08:41
[2017-07-19] MEDS ORDERED: KETOROLAC TROMETHAMINE 60 MG/2 ML (IM) VIAL IM ONE (14:45)
[2017-07-19] MEDS ORDERED: KETOROLAC TROMETHAMINE 60 MG/2 ML (IM) VIAL IM PRN (14:45)
[2017-07-19] MEDS: ENOXAPARIN SODIUM 40 MG/0.4 ML SYRINGE SQ SCH (15:36)
[2017-07-19] MEDS ORDERED: PILL SPLITTER OTHER PRN (16:00)
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
[2017-07-19] MEDS: CITALOPRAM HYDROBROMIDE 20 MG TAB PO SCH (17:33)
[2017-07-19] MEDS: hydrOXYzine HCL 25 MG TAB PO PRN (21:24)
[2017-07-20 00:44] VITALS: BP 114/72; PULSE 57; RESP 16; TEMP 98; O2SAT 97
[2017-07-20] MEDS: SODIUM CHLOR 0.9% 1000 ML INJ 1,000 ML IV SCH (05:03)
[2017-07-20 08:00] VITALS: BP 121/73; PULSE 62; RESP 18; TEMP 97.8; O2SAT 99
[2017-07-20] MEDS: oxyCODONE/ACETAMINOPHEN 5 MG/325 MG TAB PO PRN ×2 (08:07→12:28)
[2017-07-20] MEDS: hydrOXYzine HCL 25 MG TAB PO PRN (08:07)
[2017-07-20] MEDS: LORazepam 1 MG TAB PO PRN ×2 (08:07→12:24)
[2017-07-20] MEDS: FAMOTIDINE 20 MG TAB PO SCH (08:53)
[2017-07-20] MEDS: THIAMINE HCL 100 MG TAB PO SCH (08:53)
[2017-07-20] MEDS: MULTIVITAMINS/MINERALS THERAPEUTIC TAB PO SCH (08:53)
[2017-07-20] MEDS: SODIUM CHLORIDE 0.9% FLUSH 10 ML FLUSH IV FLUSH SCH (08:53)
[2017-07-20] MEDS: CITALOPRAM HYDROBROMIDE 20 MG TAB PO SCH (08:53)
[2017-07-20] MEDS: FOLIC ACID 1 MG TAB PO SCH (08:53)
[2017-07-20] MEDS ORDERED: OXYC1TAB63 PO (11:01)
[2017-07-20] MEDS ORDERED: LORA-392 PO (11:01)
--- NOTE | 2017-07-20 11:02 | HHI.DS ---
Discharge Summary Admission Date July 18, 2017 at 13:13 Discharge Date: Jul 20, 2017 Admitting Diagnosis mult alcohol withdrawal seizures,head injury,L knee contusion (1) Head injury ICD Code: S09.90XA - Unspecified injury of head, initial encounter Status: Acute (2) Contusion of left knee, initial encounter ICD Code: S80.02XA - Contusion of left knee, initial encounter Status: Acute (3) Alcohol withdrawal seizure with complication ICD Code: F10.239 - Alcohol dependence with withdrawal, unspecified; R56.9 - Unspecified convulsions Status: Acute (4) Adjustment disorder with anxiety ICD Code: F43.22 - Adjustment disorder with anxiety (5) Anxiety disorder, unspecified ICD Code: F41.9 - Anxiety disorder, unspecified Procedures none Brief History - From Admission patient is a 32 yo F with h/o alcohol use, who came to the ED with complains of abdominal pain and diarrhea for 1 week. She had a syncopal episode today and struck her forehead on the ground. She woke up on the ground. Complains of headache. No neck pain. Symptoms are moderately severe. She also has left knee pain from the fall and a bruise there. Patient's fianc called paramedics when she fell. Patient has severe anxiety and panic problems. She is visibly panicky and in a position and shaking. Very challenging to evaluate. No alleviating factors. Symptoms exacerbated by her anxiety. She does have history of benzodiazepine withdrawal seizure in the past but has not been on benzodiazepines per years per her report. She is a heavy alcohol drinker. Denies drug use. CBC/BMP: 07/18/17 0918 07/19/17 0640 Significant Findings Laboratory Tests Test 07/18/17 09:18 07/18/17 10:30 07/18/17 15:22 07/19/17 06:40 Neutrophils (%) (Auto) 72.9 % (16.0-70.0) Monocytes (%) (Auto) 9.9 % (0.0-8.0) Random Glucose 110 MG/DL (74-106) Aspartate Amino Transf (AST/SGOT) 76 U/L (15-37) 47 U/L (15-37) Alanine Aminotransferase (ALT/SGPT) 70 U/L (10-53) 59 U/L (10-53) Estimat Glomerular Filtration Rate 87 ML/MIN (>89) Ethyl Alcohol Level 19 MG/DL (0-5) Imaging Last Impressions Knee X-Ray 07/18/17 0000 Signed Impressions: CONCLUSION: 1. No acute fracture or dislocation. Head CT 07/18/17 0000 Signed Impressions: CONCLUSION: 1. Negative trauma CT Abdomen/Pelvis CT 07/18/17 0000 Signed Impressions: CONCLUSION: 1. Negative trauma study. 2. Nonobstructive bowel gas pattern performed without oral contrast demonstrat ing no gross abnormality. 3. Mild hepatic steatosis. 4. Contracted gallbladder with no evidence of cholelithiasis. PE at Discharge GENERAL: This is a well-nourished, well-developed patient, pressured speech. CARDIOVASCULAR: Regular rate and rhythm without murmurs, gallops, or rubs. RESPIRATORY: Clear to auscultation. Breath sounds equal bilaterally. No wheezes , rales, or rhonchi. GASTROINTESTINAL: Abdomen soft, non-tender, nondistended. No hepato-splenomegaly , or palpable masses. No guarding. MUSCULOSKELETAL: Extremities without clubbing, cyanosis, or edema. No joint tenderness, effusion, or edema noted. No calf tenderness. Negative Homans sign bilaterally. NEUROLOGICAL: Awake and alert. Cranial nerves II through XII intact. Motor and sensory grossly within normal limits. Five out of 5 muscle strength in all muscle groups. Normal speech. Pt update on day of discharge Feels much better No seizures. No n/v/d/c. Still with pain in her left knee. Patient feels comfortable to go home. Encourage to follow up at [facility] and also to follow up with a psychiatrist as OP. Hospital Course Alcohol withdrawal seizure with complication Head injury Contusion of left knee H/o anxiety PTSD Consult psych , appreciate recommendations, Alcohol level is 19 and tox screen negative on admission Chest x-ray and CT imaging reviewed no acute findings Placed on [facility] protocol Seizure precautions Neuro checks EEG reviewed no seizures. Counselled regarding EtOH use, drug use Drug-seeking behavior. DC home in stable condition to follow up at [facility] with PCP, AA, also to follow up with psych as OP. Pt Condition on Discharge: Stable Discharge Disposition: Discharge Home Discharge Time: > 30 minutes Discharge Instructions DIET: Follow Instructions for: As Tolerated, No Restrictions Activities you can perform: Regular-No Restrictions Follow up Referrals: PCP Follow-up - 2-3 Days New Medications: Chlordiazepoxide HCl (Chlordiazepoxide HCl) 5 Mg Capsule 5 MG PO Q12HR for withdrawals , #6 TAB Oxycodone HCl/Acetaminophen (Oxycodone-Acetaminophen 5-325) 5 Mg-325 Mg Tablet 1 TAB PO Q4H PRN for pain >5, #7 TAB Sirisha Da Silva MD Jul 20, 2017 11:02
[2017-07-20 12:00] VITALS: BP 144/65; PULSE 95; RESP 20; TEMP 97.2; O2SAT 98
[2017-07-20] MEDS ORDERED: CHLO5CAP4 PO (12:04)
== END 2017-07-20 12:49 | disposition home or self-care (01) | DRG 897 ==
LOC: NEPE 08:33 → NEDA 13:13 → N07B 15:50
PROVIDERS: ADMIT Hospitalist; ATTEND Hospitalist
DX: F10.239 Alcohol dependence with withdrawal, unspecified (principal); R56.9 Unspecified convulsions; S09.90XA Unspecified injury of head, initial encounter; S80.02XA Contusion of left knee, initial encounter; F43.22 Adjustment disorder with anxiety; R19.7 Diarrhea, unspecified; R10.9 Unspecified abdominal pain; Y90.0 Blood alcohol level of less than 20 mg/100 ml; F43.10 Post-traumatic stress disorder, unspecified; F41.9 Anxiety disorder, unspecified; Z91.81 History of falling; W18.39XA Other fall on same level, initial encounter; Z76.5 Malingerer [conscious simulation]
CPT/HCPCS: 70450; 73564; 74177; 80053; 80307; 83690; 83735; 84100; 84703; 85025; 93005; 95819; 96361; 96374; J1650; J1885; J2060; J7030; Q9967

== ENCOUNTER 2017-07-27 03:49 | Emergency (ER) | payer SELFPAY ==
[~2017-07-27] VITALS: Ht 165.1 cm; Wt 63.6 kg
[2017-07-27 03:49] VITALS: BP 131/83; PULSE 111; RESP 18; TEMP 98.4; O2SAT 97
[~2017-07-27 03:49] MED LIST changes: -BACT800T5 PO; +CHLO5CAP4 PO; -CLIN150 PO; -HIBI4LIQ TOPICAL; -NORC5TAB PO; +OXYC1TAB63 PO
[2017-07-27] MEDS ORDERED: SODIUM CHLOR 0.9% 1000 ML INJ 1,000 ML IV ONE ×2 (04:00→05:15)
[2017-07-27] MEDS ORDERED: LORazepam 2 MG/ML VIAL IV PUSH ONE ×2 (04:00)
--- NOTE | 2017-07-27 04:05 | PD ---
HPI Chief Complaint: Alcohol/Drug Intoxication Time Seen by Provider: 03:53 Travel History International Travel<30 days: No Contact w/Intl Traveler<30days: No Traveled to known affect area: No History of Present Illness HPI Patient is a 32-year-old female with history of alcoholism, presents the emergency room intoxicated. As per EMS, patient was apparently picked up from an event where she had been drinking heavily, family members noted that patient was acting not like her normal self and appeared agitated. Patient complains of pains all of her body, patient reports that she drank heavily, denies any use of drugs. Patient denies any suicidal or homicidal ideations. PFSH Past Medical History Anxiety: Yes Cancer: No Cardiovascular Problems: No Endocrine: No Genitourinary: No Immune Disorder: No Musculoskeletal: No Psychiatric: Yes (PTSD) Reproductive: No Respiratory: No Migraines: Yes Seizures: Yes (R/T COMING OFF RX MEDICATION) : 3 Para: 1 Miscarriage: 1 : 1 Past Surgical History Oral Surgery: Yes (wisdom teeth) Other Surgery: Yes (COSMETIC ) Social History Alcohol Use: Yes (daily "couple shots and beer") Tobacco Use: No Substance Use: No Allergies-Medications (Allergen,Severity, Reaction): Coded Allergies: No Known Allergies (Unverified Allergy, Unknown, 07/28/17) Reported Meds & Prescriptions Reported Meds & Active Scripts Active No Active Prescriptions or Reported Medications Review of Systems ROS Limitations: Intoxication General / Constitutional: No: Fever Eyes: No: Visual changes HENT: No: Headaches Cardiovascular: No: Chest Pain or Discomfort Respiratory: No: Shortness of Breath Gastrointestinal: No: Abdominal Pain Genitourinary: No: Dysuria Musculoskeletal: No: Pain Skin: No Rash Neurologic: No: Weakness Psychiatric: Positive: Substance Abuse (Alcoholism), No: Depression, Suicidal Ideations, Homicidal Ideation Endocrine: No: Polydipsia Hematologic/Lymphatic: No: Easy Bruising Physical Exam Narrative GENERAL: Mild distress SKIN: Focused skin assessment warm/dry. HEAD: Atraumatic. Normocephalic. EYES: Pupils equal and round. No scleral icterus. No injection or drainage. ENT: No nasal bleeding or discharge. Mucous membranes pink and moist. NECK: Trachea midline. No JVD. CARDIOVASCULAR: Regular rate and rhythm. No murmur appreciated. RESPIRATORY: No accessory muscle use. Clear to auscultation. Breath sounds equal bilaterally. GASTROINTESTINAL: Abdomen soft, non-tender, nondistended. Hepatic and splenic margins not palpable. MUSCULOSKELETAL: No obvious deformities. No clubbing. No cyanosis. No edema. NEUROLOGICAL: Awake and alert. Normal speech. PSYCHIATRIC: Agitated and anxious mood and affect Data Data Last Documented VS Vital Signs Date Time Temp Pulse Resp B/P (MAP) Pulse Ox O2 Delivery O2 Flow Rate FiO2 07/27/17 09:36 90 18 119/64 (82) 99 07/27/17 07:15 Room Air 07/27/17 03:49 98.4 Orders Orders Complete Blood Count With Diff (07/27/17 03:53) Comprehensive Metabolic Panel (07/27/17 03:53) Thyroid Stimulating Hormone (07/27/17 03:53) Oximetry (07/27/17 03:53) Iv Access Insert/Monitor (07/27/17 03:53) Ecg Monitoring (07/27/17 03:53) Beta Hcg (Quant/Titer) (07/27/17 03:53) Drug Screen, Random Urine (07/27/17 03:53) Alcohol (Ethanol) (07/27/17 03:53) Salicylates (Aspirin) (07/27/17 03:53) Tylenol (Acetaminophen) (07/27/17 03:53) Sodium Chlor 0.9% 1000 Ml Inj (Ns 1000 M (07/27/17 04:00) Lorazepam Inj (Ativan Inj) (07/27/17 04:00) Lorazepam Inj (Ativan Inj) (07/27/17 04:00) Potassium Chloride (Kcl) (07/27/17 04:30) Ed Urine Pregnancytest Poc (07/27/17 04:24) Sodium Chlor 0.9% 1000 Ml Inj (Ns 1000 M (07/27/17 05:15) Hydroxyzine Hcl (Atarax) (07/27/17 08:15) Lidocaine Pf 1% Inj (Xylocaine-Mpf 1% In (07/27/17 09:00) Ed Discharge Order (07/27/17 09:26) Labs Laboratory Tests Test 07/27/17 04:03 07/27/17 04:10 White Blood Count 6.3 TH/MM3 Red Blood Count 4.18 MIL/MM3 Hemoglobin 12.6 GM/DL Hematocrit 37.6 % Mean Corpuscular Volume 90.0 FL Mean Corpuscular Hemoglobin 30.1 PG Mean Corpuscular Hemoglobin Concent 33.4 % Red Cell Distribution Width 14.0 % Platelet Count 278 TH/MM3 Mean Platelet Volume 5.8 FL Neutrophils (%) (Auto) 37.8 % Lymphocytes (%) (Auto) 51.5 % Monocytes (%) (Auto) 9.9 % Eosinophils (%) (Auto) 0.4 % Basophils (%) (Auto) 0.4 % Neutrophils # (Auto) 2.4 TH/MM3 Lymphocytes # (Auto) 3.3 TH/MM3 Monocytes # (Auto) 0.6 TH/MM3 Eosinophils # (Auto) 0.0 TH/MM3 Basophils # (Auto) 0.0 TH/MM3 CBC Comment DIFF FINAL Differential Comment Blood Urea Nitrogen 6 MG/DL Creatinine 0.76 MG/DL Random Glucose 111 MG/DL Total Protein 8.1 GM/DL Albumin 4.0 GM/DL Calcium Level 8.2 MG/DL Alkaline Phosphatase 79 U/L Aspartate Amino Transf (AST/SGOT) 109 U/L Alanine Aminotransferase (ALT/SGPT) 88 U/L Total Bilirubin 0.6 MG/DL Sodium Level 139 MEQ/L Potassium Level 3.3 MEQ/L Chloride Level 100 MEQ/L Carbon Dioxide Level 28.3 MEQ/L Anion Gap 11 MEQ/L Estimat Glomerular Filtration Rate 88 ML/MIN Thyroid Stimulating Hormone 3rd Gen 0.835 uIU/ML Human Chorionic Gonadotropin, Quant LESS THAN 1 MIU/ML Salicylates Level LESS THAN 1.7 MG/DL Acetaminophen Level LESS THAN 2.0 MCG/ML Ethyl Alcohol Level 367 MG/DL Urine Opiates Screen NEG Urine Barbiturates Screen NEG Urine Amphetamines Screen NEG Urine Benzodiazepines Screen POS Urine Cocaine Screen NEG Urine Cannabinoids Screen NEG MDM Medical Decision Making Medical Screen Exam Complete: Yes Emergency Medical Condition: Yes Medical Record Reviewed: Yes Interpretation(s) Vital Signs Date Time Temp Pulse Resp B/P (MAP) Pulse Ox O2 Delivery O2 Flow Rate FiO2 07/27/17 04:24 112 20 126/80 (95) 99 07/27/17 04:24 111 07/27/17 04:18 118 20 126/83 (97) 96 07/27/17 03:50 111 Room Air 07/27/17 03:49 98.4 111 18 131/83 (99) 97 Laboratory Tests Test 07/27/17 04:03 07/27/17 04:10 White Blood Count 6.3 TH/MM3 (4.0-11.0) Red Blood Count 4.18 MIL/MM3 (4.00-5.30) Hemoglobin 12.6 GM/DL (11.6-15.3) Hematocrit 37.6 % (35.0-46.0) Mean Corpuscular Volume 90.0 FL (80.0-100.0) Mean Corpuscular Hemoglobin 30.1 PG (27.0-34.0) Mean Corpuscular Hemoglobin Concent 33.4 % (32.0-36.0) Red Cell Distribution Width 14.0 % (11.6-17.2) Platelet Count 278 TH/MM3 (150-450) Mean Platelet Volume 5.8 FL (7.0-11.0) Neutrophils (%) (Auto) 37.8 % (16.0-70.0) Lymphocytes (%) (Auto) 51.5 % (9.0-44.0) Monocytes (%) (Auto) 9.9 % (0.0-8.0) Eosinophils (%) (Auto) 0.4 % (0.0-4.0) Basophils (%) (Auto) 0.4 % (0.0-2.0) Neutrophils # (Auto) 2.4 TH/MM3 (1.8-7.7) Lymphocytes # (Auto) 3.3 TH/MM3 (1.0-4.8) Monocytes # (Auto) 0.6 TH/MM3 (0-0.9) Eosinophils # (Auto) 0.0 TH/MM3 (0-0.4) Basophils # (Auto) 0.0 TH/MM3 (0-0.2) CBC Comment DIFF FINAL Differential Comment Blood Urea Nitrogen 6 MG/DL (7-18) Creatinine 0.76 MG/DL (0.50-1.00) Random Glucose 111 MG/DL (74-106) Total Protein 8.1 GM/DL (6.4-8.2) Albumin 4.0 GM/DL (3.4-5.0) Calcium Level 8.2 MG/DL (8.5-10.1) Alkaline Phosphatase 79 U/L (45-117) Aspartate Amino Transf (AST/SGOT) 109 U/L (15-37) Alanine Aminotransferase (ALT/SGPT) 88 U/L (10-53) Total Bilirubin 0.6 MG/DL (0.2-1.0) Sodium Level 139 MEQ/L (136-145) Potassium Level 3.3 MEQ/L (3.5-5.1) Chloride Level 100 MEQ/L (98-107) Carbon Dioxide Level 28.3 MEQ/L (21.0-32.0) Anion Gap 11 MEQ/L (5-15) Estimat Glomerular Filtration Rate 88 ML/MIN (>89) Human Chorionic Gonadotropin, Quant LESS THAN 1 MIU/ML (0-5) Salicylates Level LESS THAN 1.7 MG/DL Acetaminophen Level LESS THAN 2.0 MCG/ML Ethyl Alcohol Level 367 MG/DL (0-5) Urine Opiates Screen NEG (NEG) Urine Barbiturates Screen NEG (NEG) Urine Amphetamines Screen NEG (NEG) Urine Benzodiazepines Screen POS (NEG) Urine Cocaine Screen NEG (NEG) Urine Cannabinoids Screen NEG (NEG) Vital Signs Date Time Temp Pulse Resp B/P (MAP) Pulse Ox O2 Delivery O2 Flow Rate FiO2 07/27/17 04:24 112 20 126/80 (95) 99 07/27/17 04:24 111 07/27/17 04:18 118 20 126/83 (97) 96 07/27/17 03:50 111 Room Air 07/27/17 03:49 98.4 111 18 131/83 (99) 97 Differential Diagnosis Alcoholism, drug abuse, electrolyte abnormality, disc disorder, anxiety Narrative Course During the course of the patients emergency department visit, the patients history, examination, and differential diagnosis were reviewed with the patient. The patient was placed on a slip operator with oximetry and frequent blood pressure monitoring. The patient had an IV access obtained and blood work sent for analysis. The patient was initially provided IV Ativan as patient is severely agitated upon presentation to the emergency room The patients laboratory studies were reviewed and remarkable for Laboratory Tests Test 07/27/17 04:03 07/27/17 04:10 White Blood Count 6.3 TH/MM3 (4.0-11.0) Red Blood Count 4.18 MIL/MM3 (4.00-5.30) Hemoglobin 12.6 GM/DL (11.6-15.3) Hematocrit 37.6 % (35.0-46.0) Mean Corpuscular Volume 90.0 FL (80.0-100.0) Mean Corpuscular Hemoglobin 30.1 PG (27.0-34.0) Mean Corpuscular Hemoglobin Concent 33.4 % (32.0-36.0) Red Cell Distribution Width 14.0 % (11.6-17.2) Platelet Count 278 TH/MM3 (150-450) Mean Platelet Volume 5.8 FL (7.0-11.0) Neutrophils (%) (Auto) 37.8 % (16.0-70.0) Lymphocytes (%) (Auto) 51.5 % (9.0-44.0) Monocytes (%) (Auto) 9.9 % (0.0-8.0) Eosinophils (%) (Auto) 0.4 % (0.0-4.0) Basophils (%) (Auto) 0.4 % (0.0-2.0) Neutrophils # (Auto) 2.4 TH/MM3 (1.8-7.7) Lymphocytes # (Auto) 3.3 TH/MM3 (1.0-4.8) Monocytes # (Auto) 0.6 TH/MM3 (0-0.9) Eosinophils # (Auto) 0.0 TH/MM3 (0-0.4) Basophils # (Auto) 0.0 TH/MM3 (0-0.2) CBC Comment DIFF FINAL Differential Comment Blood Urea Nitrogen 6 MG/DL (7-18) Creatinine 0.76 MG/DL (0.50-1.00) Random Glucose 111 MG/DL (74-106) Total Protein 8.1 GM/DL (6.4-8.2) Albumin 4.0 GM/DL (3.4-5.0) Calcium Level 8.2 MG/DL (8.5-10.1) Alkaline Phosphatase 79 U/L (45-117) Aspartate Amino Transf (AST/SGOT) 109 U/L (15-37) Alanine Aminotransferase (ALT/SGPT) 88 U/L (10-53) Total Bilirubin 0.6 MG/DL (0.2-1.0) Sodium Level 139 MEQ/L (136-145) Potassium Level 3.3 MEQ/L (3.5-5.1) Chloride Level 100 MEQ/L (98-107) Carbon Dioxide Level 28.3 MEQ/L (21.0-32.0) Anion Gap 11 MEQ/L (5-15) Estimat Glomerular Filtration Rate 88 ML/MIN (>89) Thyroid Stimulating Hormone 3rd Gen 0.835 uIU/ML (0.358-3.740) Human Chorionic Gonadotropin, Quant LESS THAN 1 MIU/ML (0-5) Salicylates Level LESS THAN 1.7 MG/DL Acetaminophen Level LESS THAN 2.0 MCG/ML Ethyl Alcohol Level 367 MG/DL (0-5) Urine Opiates Screen NEG (NEG) Urine Barbiturates Screen NEG (NEG) Urine Amphetamines Screen NEG (NEG) Urine Benzodiazepines Screen POS (NEG) Urine Cocaine Screen NEG (NEG) Urine Cannabinoids Screen NEG (NEG) . Plan to discharge when clinically sober Diagnosis Primary Impression: Alcohol abuse Additional Impressions: Alcoholism Hypokalemia Transaminitis Patient Instructions: General Instructions Additional Instructions: Please drink alcohol responsibly Please follow up with your primary care doctor in 2-3 days Return to the ER if symptoms worsen or progress Return to the ER as needed Scripts No Active Prescriptions or Reported Meds Marisol Sutherland DO Jul 27, 2017 04:05
[2017-07-27 04:11] LABS: AUTOMATED NEUTROPHIL # 2.4 TH/MM3 (1.8-7.7); BASOPHIL % 0.4 % (0.0-2.0); EOSINOPHIL % 0.4 % (0.0-4.0); HEMATOCRIT 37.6 % (35.0-46.0); HEMOGLOBIN 12.6 GM/DL (11.6-15.3); LYMPH % 51.5 % (9.0-44.0); LYMPHOCYTE # 3.3 TH/MM3 (1.0-4.8); MEAN CORPUSCULAR HEMOGLOBIN 30.1 PG (27.0-34.0); MEAN CORPUSCULAR HGB CONC 33.4 % (32.0-36.0); MEAN PLATELET VOLUME 5.8 FL (7.0-11.0); MONO % 9.9 % (0.0-8.0); MONOCYTE # 0.6 TH/MM3 (0-0.9); NEUT % 37.8 % (16.0-70.0); PLATELET COUNT 278 TH/MM3 (150-450); RED BLOOD COUNT 4.18 MIL/MM3 (4.00-5.30); WHITE BLOOD COUNT 6.3 TH/MM3 (4.0-11.0)
[2017-07-27 04:18] VITALS: BP 126/83; PULSE 118; RESP 20; O2SAT 96
[2017-07-27 04:18] LABS: CHLORIDE 100 MEQ/L (98-107); SODIUM (NA) 139 MEQ/L (136-145)
[2017-07-27 04:22] LABS: CALCIUM 8.2 MG/DL (8.5-10.1)
[2017-07-27 04:23] LABS: BICARBONATE 28.3 MEQ/L (21.0-32.0); BLOOD UREA NITROGEN 6 MG/DL (7-18); GLUCOSE,RANDOM 111 MG/DL (74-106)
[2017-07-27 04:24] VITALS: BP 126/80; PULSE 112; RESP 20; O2SAT 99
[2017-07-27 04:26] LABS: ALT (GPT) 88 U/L (10-53); AST (GOT) 109 U/L (15-37); CREATININE 0.76 MG/DL (0.50-1.00); GLOMERULAR FILTRATION RATE 88 ML/MIN (>89)
[2017-07-27 04:27] LABS: TOTAL BILIRUBIN ADULT 0.6 MG/DL (0.2-1.0); TOTAL PROTEIN 8.1 GM/DL (6.4-8.2)
[2017-07-27 04:28] LABS: ALKALINE PHOSPHATASE 79 U/L (45-117)
[2017-07-27] MEDS ORDERED: POTASSIUM CHLORIDE 10 MEQ CONTROLLED RELEASE TAB PO ONE (04:30)
[2017-07-27 04:35] LABS: ACETAMINOPHEN LESS THAN 2.0 MCG/ML (10.0-30.0)
[2017-07-27 06:35] VITALS: BP 103/54; PULSE 100; RESP 20; O2SAT 98
[2017-07-27 07:15] VITALS: BP 105/65; PULSE 95; RESP 18; O2SAT 98
[2017-07-27] MEDS ORDERED: hydrOXYzine HCL 50 MG TAB PO ONE (08:15)
[2017-07-27] MEDS ORDERED: LIDOCAINE HCL 1% PF 30 ML VIAL INFIL ONE (09:00)
--- NOTE | 2017-07-27 09:19 | PD ---
Physical Exam Time Seen by Provider: 09:16 Narrative I was asked to remove a piece of glass from the bottom of the left foot. Data Data Last Documented VS Vital Signs Date Time Temp Pulse Resp B/P (MAP) Pulse Ox O2 Delivery O2 Flow Rate FiO2 07/27/17 07:15 95 18 105/65 (78) 98 Room Air 07/27/17 03:49 98.4 Orders Orders Complete Blood Count With Diff (07/27/17 03:53) Comprehensive Metabolic Panel (07/27/17 03:53) Thyroid Stimulating Hormone (07/27/17 03:53) Oximetry (07/27/17 03:53) Iv Access Insert/Monitor (07/27/17 03:53) Ecg Monitoring (07/27/17 03:53) Beta Hcg (Quant/Titer) (07/27/17 03:53) Drug Screen, Random Urine (07/27/17 03:53) Alcohol (Ethanol) (07/27/17 03:53) Salicylates (Aspirin) (07/27/17 03:53) Tylenol (Acetaminophen) (07/27/17 03:53) Sodium Chlor 0.9% 1000 Ml Inj (Ns 1000 M (07/27/17 04:00) Lorazepam Inj (Ativan Inj) (07/27/17 04:00) Lorazepam Inj (Ativan Inj) (07/27/17 04:00) Potassium Chloride (Kcl) (07/27/17 04:30) Ed Urine Pregnancytest Poc (07/27/17 04:24) Sodium Chlor 0.9% 1000 Ml Inj (Ns 1000 M (07/27/17 05:15) Hydroxyzine Hcl (Atarax) (07/27/17 08:15) Lidocaine Pf 1% Inj (Xylocaine-Mpf 1% In (07/27/17 09:00) Labs Laboratory Tests Test 07/27/17 04:03 07/27/17 04:10 White Blood Count 6.3 TH/MM3 Red Blood Count 4.18 MIL/MM3 Hemoglobin 12.6 GM/DL Hematocrit 37.6 % Mean Corpuscular Volume 90.0 FL Mean Corpuscular Hemoglobin 30.1 PG Mean Corpuscular Hemoglobin Concent 33.4 % Red Cell Distribution Width 14.0 % Platelet Count 278 TH/MM3 Mean Platelet Volume 5.8 FL Neutrophils (%) (Auto) 37.8 % Lymphocytes (%) (Auto) 51.5 % Monocytes (%) (Auto) 9.9 % Eosinophils (%) (Auto) 0.4 % Basophils (%) (Auto) 0.4 % Neutrophils # (Auto) 2.4 TH/MM3 Lymphocytes # (Auto) 3.3 TH/MM3 Monocytes # (Auto) 0.6 TH/MM3 Eosinophils # (Auto) 0.0 TH/MM3 Basophils # (Auto) 0.0 TH/MM3 CBC Comment DIFF FINAL Differential Comment Blood Urea Nitrogen 6 MG/DL Creatinine 0.76 MG/DL Random Glucose 111 MG/DL Total Protein 8.1 GM/DL Albumin 4.0 GM/DL Calcium Level 8.2 MG/DL Alkaline Phosphatase 79 U/L Aspartate Amino Transf (AST/SGOT) 109 U/L Alanine Aminotransferase (ALT/SGPT) 88 U/L Total Bilirubin 0.6 MG/DL Sodium Level 139 MEQ/L Potassium Level 3.3 MEQ/L Chloride Level 100 MEQ/L Carbon Dioxide Level 28.3 MEQ/L Anion Gap 11 MEQ/L Estimat Glomerular Filtration Rate 88 ML/MIN Thyroid Stimulating Hormone 3rd Gen 0.835 uIU/ML Human Chorionic Gonadotropin, Quant LESS THAN 1 MIU/ML Salicylates Level LESS THAN 1.7 MG/DL Acetaminophen Level LESS THAN 2.0 MCG/ML Ethyl Alcohol Level 367 MG/DL Urine Opiates Screen NEG Urine Barbiturates Screen NEG Urine Amphetamines Screen NEG Urine Benzodiazepines Screen POS Urine Cocaine Screen NEG Urine Cannabinoids Screen NEG MDM Supervised Visit with [facility]: No Narrative Course I was asked to remove a piece of glass from the bottom of the left foot. See my procedure note. Procedures Procedure Narrative Removal of glass from the bottom of left foot: The area was prepped and was sterilely draped. A subcutaneous wheal of 1 % Xylocaine with a total number 1 mL was used to anesthetize the area properly. An 18-gauge needle was inserted below the skin of the cut and normal saline was injected to flush the shard of glass from the site. Patient tolerated well. Sterile dressing applied. Diagnosis Primary Impression: Alcohol abuse Additional Impressions: Alcoholism Transaminitis Hypokalemia Patient Instructions: General Instructions Additional Instruction: Please drink alcohol responsibly Please follow up with your primary care doctor in 2-3 days Return to the ER if symptoms worsen or progress Return to the ER as needed Rupal Mckeon Jul 27, 2017 09:19
[2017-07-27 09:36] VITALS: BP 119/64
== END 2017-07-27 09:41 | disposition home or self-care (01) ==
LOC: PHED 03:49
DX: F10.129 Alcohol abuse with intoxication, unspecified (principal); Y90.8 Blood alcohol level of 240 mg/100 ml or more; E87.6 Hypokalemia; R74.0 Nonspecific elevation of levels of transaminase and lactic acid dehydrogenase [LDH]; F43.10 Post-traumatic stress disorder, unspecified; F41.9 Anxiety disorder, unspecified
CPT/HCPCS: 80053; 80307; 84443; 84702; 84703; 85025; 96361; 96374; 99284; J2060; J7030

== ENCOUNTER 2017-07-27 13:32 | Emergency (ER) | payer SELFPAY ==
[~2017-07-27] VITALS: Ht 162.6 cm; Wt 65.0 kg
[2017-07-27 13:41] VITALS: BP 149/91; PULSE 121; RESP 16; TEMP 98.1; O2SAT 97
--- NOTE | 2017-07-27 13:53 | PD ---
HPI . Alcohol intoxication Chief Complaint: Alcohol/Drug Intoxication Time Seen by Provider: 13:39 Travel History International Travel<30 days: No Contact w/Intl Traveler<30days: No Traveled to known affect area: No History of Present Illness HPI This patient is brought to us by [facility] for alcohol intoxication. She is unable to provide any history. She was reportedly found running through her neighborhood naked. The patient was just released from here a few hours ago because of alcohol intoxication. She was awake and alert and able to carry on a conversation when she left here. PFSH Past Medical History Anxiety: Yes Cancer: No Cardiovascular Problems: No Endocrine: No Genitourinary: No Immune Disorder: No Musculoskeletal: No Psychiatric: Yes (PTSD, PANIC DISORDER, ALCOHOL USE DISORDER) Reproductive: No Respiratory: No Migraines: Yes Seizures: Yes (R/T COMING OFF RX MEDICATION) ?: Not : 3 Para: 1 Miscarriage: 1 : 1 Past Surgical History Oral Surgery: Yes (wisdom teeth) Other Surgery: Yes (COSMETIC ) Social History Alcohol Use: Yes (DAILY) Tobacco Use: No (DENIES 07/27/17) Substance Use: No (DENIES ON 07/27/17) Allergies-Medications (Allergen,Severity, Reaction): Coded Allergies: No Known Allergies (Unverified Allergy, Unknown, 07/27/17) Reported Meds & Prescriptions Reported Meds & Active Scripts Active No Active Prescriptions or Reported Medications Review of Systems ROS Limitations: Intoxication Physical Exam Narrative GENERAL: Sleepy but easily arousable. Slurred speech. SKIN: Warm and dry. Normal color and turgor. HEAD: Normocephalic/atraumatic. EYES: Pupils are equal. Extraocular movements are intact. NECK: Normal range of motion. Supple. CARDIOVASCULAR: Regular rate and rhythm. RESPIRATORY: Nonlabored respirations. Normal sats. MUSCULOSKELETAL: Atraumatic. Normal muscle tone. NEUROLOGICAL: Moving all 4 extremities equally. No obvious cranial nerve deficits. PSYCHIATRIC: Unable to assess. Judgment is poor. Data Data Last Documented VS Vital Signs Date Time Temp Pulse Resp B/P (MAP) Pulse Ox O2 Delivery O2 Flow Rate FiO2 07/27/17 14:27 87 16 152/80 (104) 95 Room Air 07/27/17 13:41 98.1 MDM Medical Decision Making Medical Screen Exam Complete: Yes Emergency Medical Condition: Yes Differential Diagnosis Differential diagnosis of altered mental status includes but is not limited to infection, electrolyte abnormality, neurological event, intoxication, encephalitis, meningitis Narrative Course This patient is brought to us via [facility] basically for public intoxication and running around her neighborhood naked. She was here during the wee hours of the morning for acute intoxication. She was kept here until she had "slept it off." The patient is up ambulatory in the department. She has actually gone around visiting other patients. Unfortunately, she does not have a ride home. She has been discharged but cannot actually go anywhere until she has a ride. Diagnosis Primary Impression: Acute alcohol intoxication Qualified Codes: F10.929 - Alcohol use, unspecified with intoxication, unspecified Scripts No Active Prescriptions or Reported Meds Disposition: 01 DISCHARGE HOME Condition: Stable Cristina Evans MD Jul 27, 2017 13:53
[2017-07-27 14:27] VITALS: BP 152/80; PULSE 87; RESP 16; O2SAT 95
[2017-07-27 19:13] VITALS: BP 140/87
== END 2017-07-27 19:16 | disposition home or self-care (01) ==
LOC: PHED 13:32
DX: F10.129 Alcohol abuse with intoxication, unspecified (principal); F43.10 Post-traumatic stress disorder, unspecified
CPT/HCPCS: 99282

== ENCOUNTER 2017-07-28 19:51 | Emergency (ER) | payer SELFPAY ==
[~2017-07-28] VITALS: Ht 167.6 cm; Wt 70.0 kg
[2017-07-28 20:14] VITALS: BP 143/80; PULSE 106; RESP 16; TEMP 98.2; O2SAT 98
--- NOTE | 2017-07-28 20:53 | PD ---
HPI . Intoxication Chief Complaint: Alcohol/Drug Intoxication Time Seen by Provider: 20:05 Travel History International Travel<30 days: No Contact w/Intl Traveler<30days: No Traveled to known affect area: No History of Present Illness HPI This is this patient's third visit to 1 of our facilities within the last 36 hours because of acute alcohol intoxication. She is unable to provide any meaningful history. The patient was seen twice yesterday in [place]. Both times, she sobered up and was discharged. We queried the Police Department as to why she had not been arrested. She was found roaming a neighborhood naked. The police were not interested in arresting her. PFSH Past Medical History Anxiety: Yes Cancer: No Cardiovascular Problems: No Endocrine: No Genitourinary: No Immune Disorder: No Implanted Vascular Access Dvce: No Musculoskeletal: No Psychiatric: Yes (PTSD, PANIC DISORDER, ALCOHOL USE DISORDER) Reproductive: No Respiratory: No Migraines: Yes Seizures: Yes (R/T COMING OFF RX MEDICATION) : 3 Para: 1 Miscarriage: 1 : 1 Past Surgical History Oral Surgery: Yes (wisdom teeth) Other Surgery: Yes (COSMETIC ) Social History Alcohol Use: Yes (DAILY) Tobacco Use: No (DENIES 07/27/17) Substance Use: No (DENIES ON 07/27/17) Allergies-Medications (Allergen,Severity, Reaction): Coded Allergies: No Known Allergies (Unverified Allergy, Unknown, 07/28/17) Reported Meds & Prescriptions Reported Meds & Active Scripts Active No Active Prescriptions or Reported Medications Review of Systems ROS Limitations: Intoxication Physical Exam Narrative GENERAL: The patient is very intoxicated. She is able to tell me her name. She is very agitated. SKIN: Warm and dry. Normal color and turgor. HEAD: Normocephalic/atraumatic. EYES: Pupils are equal. Extraocular movements are intact. NECK: Normal range of motion. Supple. CARDIOVASCULAR: Regular rate and rhythm. RESPIRATORY: Nonlabored respirations. Normal sats. MUSCULOSKELETAL: Atraumatic. Normal muscle tone. NEUROLOGICAL: Easily arousable. Moving all 4 extremities equally. PSYCHIATRIC: Unable to assess. Data Data Last Documented VS Vital Signs Date Time Temp Pulse Resp B/P (MAP) Pulse Ox O2 Delivery O2 Flow Rate FiO2 07/28/17 20:14 98.2 106 16 143/80 (101) 98 Orders Orders Restraints Non-Violent [id number] (07/28/17 20:10) Ed Discharge Order (07/28/17 22:20) MDM Medical Decision Making Medical Screen Exam Complete: Yes Emergency Medical Condition: Yes Differential Diagnosis Differential diagnosis of altered mental status includes but is not limited to infection, electrolyte abnormality, neurological event, intoxication, encephalitis, meningitis Narrative Course This patient is brought to us for the third time in 36 hours with acute intoxication. She does not have any evidence of injury. She is not having any difficulty breathing. She is agitated. She has been placed in soft restraints for her own protection. She is medically clear for discharge when she either has a ride or is sober enough to safely leave. Diagnosis Primary Impression: Acute alcohol intoxication Qualified Codes: F10.929 - Alcohol use, unspecified with intoxication, unspecified Scripts No Active Prescriptions or Reported Meds Disposition: 01 DISCHARGE HOME Condition: Stable Cristina Evans MD Jul 28, 2017 20:52
[2017-07-29 00:06] VITALS: BP 116/79; PULSE 86; RESP 16; O2SAT 98
[2017-07-29 04:45] VITALS: BP 126/79; PULSE 88; RESP 16; O2SAT 99
== END 2017-07-29 05:35 | disposition home or self-care (01) ==
LOC: NEPD 19:51
DX: F10.129 Alcohol abuse with intoxication, unspecified (principal)
CPT/HCPCS: 99282